=== PATIENT | female | born 1945 | race Hispanic/Latino ===

== ENCOUNTER 2020-08-06 07:33 | Emergency (ER) | payer OTHER, MEDICARE ==
[2020-08-06] MEDS ORDERED: ACETAMINOPHEN EXTRA STRENGTH 500 MG TABLET ONE (07:53)
[2020-08-06] MEDS ORDERED: ORPHENADRINE CITRATE 30 MG/ML ML ONE (07:53)
== END 2020-08-06 09:41 | disposition home or self-care (01) ==
LOC: EDH 07:33
DX: M51.36 Other intervertebral disc degeneration, lumbar region (principal); M54.5 Low back pain; E11.9 Type 2 diabetes mellitus without complications; I10 Essential (primary) hypertension; E78.5 Hyperlipidemia, unspecified; Z90.49 Acquired absence of other specified parts of digestive tract; Z90.710 Acquired absence of both cervix and uterus
CPT/HCPCS: 72131; 82948; 96372; 99284; J2360

== ENCOUNTER → 2022-06-22 | Outpatient (CLI) | payer OTHER, MEDICARE | END | disposition home or self-care (01) | LOC: SHCH 09:42 | PROVIDERS: ATTEND Internal Medicine | DX: I70.293 Other atherosclerosis of native arteries of extremities, bilateral legs (principal) | CPT/HCPCS: 93925 ==